=== PATIENT | female | born 1995 | race Caucasian/White ===

== ENCOUNTER 2017-04-14 12:20 | Emergency (ER) | payer MEDICAID ==
[~2017-04-14] VITALS: Ht 167.6 cm; Wt 45.8 kg
[2017-04-14] MEDS ORDERED: ONDANSETRON ODT 4 MG PO ONE (13:00)
[2017-04-14] MEDS ORDERED: OXYcodone/APAP 5/325MG TABLET PO ONE (13:00)
[2017-04-14] MEDS ORDERED: ONDANSETRON ODT 4 MG ONE (13:02)
[2017-04-14] MEDS ORDERED: OXYcodone/APAP 5/325MG TABLET ONE (13:02)
[2017-04-14 13:22] LABS: BLOOD UREA NITROGEN 8 mg/dL (7-18)
[2017-04-14 13:29] LABS: ASPARTATE AMINO TRANSFERASE 17 U/L (15-37)
[2017-04-14] MEDS ORDERED: MAALOX/HYOSCYAMINE/LIDOCAINE 45 ML BOTTLE ONE (14:20)
[2017-04-14] MEDS ORDERED: MAALOX/HYOSCYAMINE/LIDOCAINE 45 ML BOTTLE PO ONE (14:30)
[2017-04-14] MEDS ORDERED: LEVO75TA5 PO (14:51)
[2017-04-14] MEDS ORDERED: AMIT10TA PO (14:51)
[2017-04-14 14:52] VITALS: BP 106/66
== END 2017-04-14 15:40 | disposition home or self-care (01) ==
LOC: ED 13:07
DX: G89.29 Other chronic pain (principal); R10.11 Right upper quadrant pain; R10.31 Right lower quadrant pain
CPT/HCPCS: 36415; 74022; 80053; 81003; 83690; 84703; 85025; 99285; Q0162

== ENCOUNTER 2017-06-04 10:21 | Emergency (ER) | payer MEDICAID ==
[~2017-06-04] VITALS: Ht 167.6 cm; Wt 44.4 kg
[~2017-06-04 10:21] MED LIST: AMIT10TA PO; LEVO75TA5 PO
[2017-06-04] MEDS ORDERED: KETOROLAC 30 MG/1 ML ONE (11:11)
[2017-06-04] MEDS ORDERED: KETOROLAC 30 MG/1 ML IM ONE (11:30)
[2017-06-04 12:20] VITALS: BP 114/67
== END 2017-06-04 12:29 | disposition home or self-care (01) ==
LOC: ED 10:58
DX: M54.5 Low back pain (principal); M46.1 Sacroiliitis, not elsewhere classified; E03.9 Hypothyroidism, unspecified; Z90.49 Acquired absence of other specified parts of digestive tract
CPT/HCPCS: 72202; 96372; 99284; J1885

== ENCOUNTER 2017-08-23 15:44 | Emergency (ER) | payer MEDICAID ==
[~2017-08-23] VITALS: Ht 167.6 cm; Wt 46.0 kg
[2017-08-23 15:46] VITALS: BP 113/77
[2017-08-23 16:41] LABS: HCG UR LOT HCG7030192
[2017-08-23 16:53] LABS: HCG UR OBC PASS
== END 2017-08-23 17:37 | disposition home or self-care (01) ==
LOC: ED 16:10
DX: N89.8 Other specified noninflammatory disorders of vagina (principal); R11.2 Nausea with vomiting, unspecified; E03.9 Hypothyroidism, unspecified; Z90.49 Acquired absence of other specified parts of digestive tract
CPT/HCPCS: 81003; 81025; 99284

== ENCOUNTER 2018-08-16 13:19 | Emergency (ER) | payer MEDICAID ==
[~2018-08-16] VITALS: Ht 170.2 cm; Wt 51.5 kg
[2018-08-16 13:47] VITALS: BP 130/95
[2018-08-16] MEDS ORDERED: DEXAMETHASONE 4 MG/ML, 1ML PO ONE (15:00)
[2018-08-16] MEDS ORDERED: DEXAMETHASONE 4 MG/ML, 1ML ONE (15:02)
== END 2018-08-16 16:16 | disposition home or self-care (01) ==
LOC: ED 16:00
DX: B34.9 Viral infection, unspecified (principal); E03.9 Hypothyroidism, unspecified
CPT/HCPCS: 71046; 99284; J1100

== ENCOUNTER 2018-11-16 16:27 | Emergency (ER) | payer MEDICAID ==
[~2018-11-16] VITALS: Ht 167.6 cm; Wt 52.4 kg
[2018-11-16 16:32] VITALS: BP 116/82
--- NOTE | 2018-11-16 17:18 | NUR ---
Pt stated that she has had left shoulder pain for 5 years and wanted to get it checked out. Pt is alert, oriented, with NAD.
--- NOTE | 2018-11-16 17:43 | NUR ---
Patient given discharge instructions and they have confirmed that they understand the instructions. Patient ambulatory with steady gait.
== END 2018-11-16 17:45 | disposition home or self-care (01) ==
LOC: ED 17:20
DX: M25.512 Pain in left shoulder (principal); G89.29 Other chronic pain; E03.9 Hypothyroidism, unspecified; Z90.49 Acquired absence of other specified parts of digestive tract
CPT/HCPCS: 99283